=== PATIENT | female | born 1980 | race Caucasian/White ===

== ENCOUNTER 2017-03-23 05:26 | Day surgery (SDC) | payer BC ==
[2017-03-18 10:32] LABS: HEMOGLOBIN 13.5 g/dL (12.0-15.5); HGB HCT DIFFERENCE 1.5; MEAN CORPUSCULAR HEMOGLOBIN 31.5 pg (27.0-33.4); MEAN CORPUSCULAR HGB CONC 34.7 g/dL (32.0-36.0); MEAN CORPUSCULAR VOLUME 91 fl (80-97); RED BLOOD COUNT 4.29 10^6/uL (3.72-5.28); RED CELL DISTRIBUTION WIDTH 12.6 % (11.5-14.0); WHITE BLOOD COUNT 5.1 10^3/uL (4.0-10.5)
[2017-03-18 10:41] LABS: AMORPHOUS SEDIMENT,URINE TRACE /HPF; APPEARANCE,URINE CLOUDY; BILIRUBIN,URINE NEGATIVE (NEGATIVE); GLUCOSE, URINE NEGATIVE (NEGATIVE); KETONES,URINE NEGATIVE (NEGATIVE); LEUKOCYTE ESTERASE,URINE NEGATIVE (NEGATIVE); NITRITE,URINE NEGATIVE (NEGATIVE); PROTEIN,URINE NEGATIVE (NEGATIVE); URINE SPECIFIC GRAVITY 1.021
[2017-03-18 10:56] LABS: ALANINE AMINOTRANSFERASE 26 U/L (9-52); ALBUMIN 4.3 g/dL (3.5-5.0); ALKALINE PHOSPHATASE 66 U/L (38-126); ANION GAP 12 (5-19); ASPARTATE AMINO TRANSFERASE 17 U/L (14-36); BILIRUBIN,DIRECT 0.3 mg/dL (0.0-0.4); BILIRUBIN,TOTAL 0.6 mg/dL (0.2-1.3); BLOOD UREA NITROGEN 13 mg/dL (7-20); CALCIUM 9.2 mg/dL (8.4-10.2); CARBON DIOXIDE 26 mmol/L (22-30); CHLORIDE 106 mmol/L (98-107); CREATININE RESULT 0.78 mg/dL (0.52-1.25); GLUCOSE 75 mg/dL (75-110); POTASSIUM 4.2 mmol/L (3.6-5.0); SODIUM 144.1 mmol/L (137-145); TOTAL PROTEIN 6.8 g/dL (6.3-8.2)
[~2017-03-23 05:26] MED LIST: RINGERS SOLUTION,LACTATED 1,000 ML IV PRN
[2017-03-23] MEDS ORDERED: MIDAZOLAM 2 MG/2 ML INJ ONE (06:39)
[2017-03-23] MEDS ORDERED: FENTANYL CITRATE INJ/PF 100 MCG/2 ML AMPUL ONE (06:39)
[2017-03-23] MEDS ORDERED: ACETAMINOPHEN 100 ML IV ONE ×2 (06:40→16:00)
[2017-03-23] MEDS ORDERED: PROPOFOL INJ 200 MG/20 ML VIAL IV ONE (06:40)
[2017-03-23] MEDS ORDERED: HYDROMORPHONE HCL INJ/PF 2 MG/ML AMPULE ONE (06:40)
[2017-03-23] MEDS ORDERED: CEFAZOLIN 1 GM/D5W RTU 1 GM/50 ML RTUPB IV ONE (07:15)
[2017-03-23] MEDS ORDERED: MEPERIDINE HCL/PF INJ 25 MG/1 ML DISP.SYRIN IV PRN (09:02)
[2017-03-23] MEDS ORDERED: ONDANSETRON HCL INJ/PF 4 MG/2 ML SDV IV PRN (09:02)
[2017-03-23] MEDS ORDERED: FENTANYL CITRATE INJ/PF 100 MCG/2 ML AMPUL IV PRN ×3 (09:02)
[2017-03-23] MEDS ORDERED: DIPHENHYDRAMINE HCL 50 MG/ML VIAL IV PRN (09:02)
[2017-03-23] MEDS ORDERED: PROMETHAZINE HCL INJ 25 MG/1 ML VIAL IV PRN (09:02)
[2017-03-23] MEDS ORDERED: ONDANSETRON HCL INJ/PF 4 MG/2 ML SDV ONE ×2 (09:33→12:49)
[2017-03-23] MEDS ORDERED: PROMETHAZINE HCL INJ 25 MG/1 ML VIAL ONE (09:47)
[2017-03-23] MEDS ORDERED: KETOROLAC TROMETHAMINE INJ/PF 30 MG/1 ML SDV ONE (10:35)
[2017-03-23] MEDS ORDERED: OXYCODONE-ACETAMINOPHEN 5-325 MG TABLET PO PRN (10:41)
[2017-03-23] MEDS: RINGERS SOLUTION,LACTATED 1,000 ML IV PRN ×2 (11:00→20:04)
--- NOTE | 2017-03-23 11:28 | OPERATIVE REPORT E ---
Operative Report NAME: ZOFIA ESQUIVEL : 1980 AGE: 36Y DATE OF SURGERY: 03/23/2017 ROOM: PREOPERATIVE DIAGNOSES: 1. Abnormal uterine bleeding. 2. Chronic pelvic pain. 3. History of endometriosis. POSTOPERATIVE DIAGNOSES: 1. Abnormal uterine bleeding. 2. Chronic pelvic pain. 3. Pelvic adhesive disease. SURGEON: LORETTA JI M.D. ANESTHESIA: Dr. Villalobos with general. FINDINGS: Dense adhesions of the bladder, primarily on the left. Normal uterus, tubes, and ovaries. COMPLICATIONS: None. ESTIMATED BLOOD LOSS: 100 mL. SPECIMENS REMOVED: Left fallopian tube and ovary with the uterus, cervix, and the right fallopian tube. PROCEDURE: Robotic-assisted total laparoscopic hysterectomy with LSO and lysis of adhesions. PROCEDURE IN DETAIL: Patient was taken to the operating and prepared and draped in normal sterile fashion in the dorsal lithotomy position. Reese catheter was then placed to gravity and the speculum was placed into the patient's vagina. The cervix was grasped on the anterior lip with a single-toothed tenaculum. The uterus was then sounded to approximately 8 cm. The cervix was then dilated to accommodate a medium Vcare uterine manipulator, which was placed without difficulty. Gloves were changed and attention was then turned to the upper portion of the case. Subumbilical skin incision was made with a scalpel and carried through to the underlying layer of fascia with hemostats. The fascia was grasped and was transected using Sabillon scissors and extended with the Mayos until approximately 2 cm was opened through which a GelPort was placed and the camera trocar and the AirSeal trocar were placed through the GelPoint. Abdomen was then insufflated with approximately 2 L of CO2 gas through the AirSeal. The camera was introduced with the above findings noted. The patient was placed in steep Trendelenburg. Two incisions were made on either side of the umbilicus approximately 10 cm away through which two 5 mm ports were then placed under direct visualization without difficulty. The robot was docked and I then descrubbed and sat at the console. Using the vessel sealer and monopolar scissors, I began on the left adnexa and transected some adhesions that were tying up the left ovary. The IP ligament was then transected using the vessel sealer and with slow traction on the ovary. This incision was then carried through to the round ligament and the round ligament was excised. Some adhesions of the pelvic wall were encountered at this point. These were taken down using the monopolar scissors and the rest of the uterine artery was then transected using the vessel sealer down to the level of the intracervical os. A bladder flap was attempted to be created on this side; however, it was difficult. Secondary to the adhesions of the visualization, it was decided to proceed with the right adnexa. Right adnexa was inspected and the right fallopian tube was then removed using the monopolar scissors and the specimen was removed through the accessory port. I then continued with transection of the utero-ovarian ligament with the vessel sealer and continuing with transection of the uterine arteries and to the level of the internal cervical os. Visualization was better on this side and this is where the bladder flap was started using the monopolar scissors and some blunt dissection. I then continued this over to the left and again went to the left adnexa and continued transection of the uterine artery until the bladder flap could be completed and then the cup could be located through the mucosa. Once the cup was easily visible and the bladder was complete retracted well away from the lower uterine segment, I then began the colporrhaphy beginning on the anterior aspect as this is what presented itself the best and this was done with the monopolar scissors and carried circumferentially around the cervix until the specimen was completely freed. The specimen was then removed through the vagina and the instruments were replaced to begin closure of the vaginal cuff, which was done with the V-Loc needle using the MegaNeedle telephone directory distributor driver and the Prograf. This was closed without difficulty. The ureters were inspected once more and found to be peristalsing normally with no signs of hydroureter. All instruments were then removed under direct visualization. The robot was undocked, and once I rescrubbed, the fascia was closed at the umbilical skin incision using 0 Vicryl and skin was closed with 4-0 Vicryl at all 3 sites. The patient tolerated procedure well. Sponge, lap, and needle counts were correct x2. Patient was taken to recovery in stable condition. DICTATING PHYSICIAN: LORETTA JI M.D. [id number] PHY#: [id number] ID: [id number] JOB#: [id number] ACCT: [id number] cc:LORETTA JI M.D. >
[2017-03-23] MEDS ORDERED: RINGERS SOLUTION,LACTATED 1,000 ML IV ONE (12:30)
[2017-03-23] MEDS ORDERED: GLYCOPYRROLATE INJ 0.4 MG/2 ML VIAL ONE (12:49)
[2017-03-23] MEDS ORDERED: LIDOCAINE 2% INJ-PF (20 MG/ML) 2 ML AMPUL ONE (12:49)
[2017-03-23] MEDS ORDERED: SUCCINYLCHOLINE CHLORIDE INJ 200 MG/10 ML VIAL ONE (12:49)
[2017-03-23] MEDS ORDERED: NEOSTIGMINE METHYLSULFATE 10 MG/10 ML VIAL ONE (12:49)
[2017-03-23] MEDS ORDERED: VECURONIUM BROMIDE INJ 10 MG VIAL IV ONE (12:49)
[2017-03-23] MEDS ORDERED: DEXAMETHASONE SOD PHOSPHATE INJ 4 MG/1 ML VIAL ONE (12:49)
[2017-03-23] MEDS ORDERED: ACETAMINOPHEN WITH CODEINE #3 TABLET ONE (13:10)
[2017-03-23] MEDS: KETOROLAC TROMETHAMINE INJ/PF 30 MG/1 ML SDV IV SCH (17:30)
[2017-03-23] MEDS: ACETAMINOPHEN WITH CODEINE #3 TABLET PO PRN (19:53)
[2017-03-24] MEDS: KETOROLAC TROMETHAMINE INJ/PF 30 MG/1 ML SDV IV SCH (01:17)
[2017-03-24 05:30] LABS: HEMATOCRIT 33.7 % (36.0-47.0); HEMOGLOBIN 11.8 g/dL (12.0-15.5); HGB HCT DIFFERENCE 1.7; MEAN CORPUSCULAR VOLUME 92 fl (80-97); RED BLOOD COUNT 3.68 10^6/uL (3.72-5.28); RED CELL DISTRIBUTION WIDTH 12.7 % (11.5-14.0); WHITE BLOOD COUNT 11.1 10^3/uL (4.0-10.5)
[2017-03-24] MEDS: ACETAMINOPHEN WITH CODEINE #3 TABLET PO PRN ×2 (06:09→09:37)
[2017-03-24 08:30] VITALS: BP 119/71
[2017-03-24] MEDS ORDERED: IBUPROFEN 800 MG TABLET PO PRN (10:00)
[2017-03-24] MEDS ORDERED: SIMETHICONE 80 MG TAB.CHEW PO ONE (10:30)
--- NOTE | 2017-03-24 11:23 | PDOC DISCHARGE SUMMARY ---
General - Admit/Disc Date/PCP Discharge Date: 03/24/17 - Discharge Diagnosis (1) Abnormal uterine and vaginal bleeding, unspecified Is this a current diagnosis for this admission?: Yes (2) Chronic pelvic pain in female Is this a current diagnosis for this admission?: Yes (3) Pelvic adhesive disease Is this a current diagnosis for this admission?: Yes - Additional Information Discharge Diet: Regular Discharge Activity: Balance Activity w/Rest, No Driving, No Lifting Over 10 Pounds, No Lifting/Push/Pulling, Pelvic Rest, No tub bath Home Medications: No Home Medications 03/18/17 History of Present Illness History of Present Illness: ZOFIA ESQUIVEL is a 36 year old female Hospital Course Hospital Course: underwent a RATLH w/ LSO and right salpingectomy without difficulty. has had an unremarkable postoperative course. ready for discharge home. voiding normally Physical Exam - Physical Exam Vital Signs: Temp Pulse Resp BP Pulse Ox 98.6 F 78 16 119/71 100 03/24/17 08:27 03/24/17 08:27 03/24/17 08:27 03/24/17 08:27 03/24/17 08:27 Intake & Output 03/23/17 03/24/17 03/25/17 06:59 06:59 06:59 Intake Total 0 2570 Output Total 4850 Balance 0 -2280 Weight 68.49 kg General appearance: PRESENT: no acute distress, cooperative GI/Abdominal exam: PRESENT: soft, tenderness - appropropriate for post operative course. incisions clean/dry and intact. Result Laboratory Results: 03/24/17 05:10 03/18/17 09:11 03/24/17 05:10 WBC 11.1 H RBC 3.68 L Hgb 11.8 L Hct 33.7 L MCV 92 MCH 32.0 MCHC 35.0 RDW 12.7 Plt Count 194 Plan Discharge Plan: discharge home with scheduled follow up Time Spent: Less than 30 Minutes
== END 2017-03-24 12:25 | disposition home or self-care (01) ==
LOC: OROUT 05:26 → 2N 11:04 → OROUT 03-24 12:25
PROVIDERS: ATTEND Obstetrics & Gynecology
PROC: 0UT14ZZ Resection of Left Ovary, Percutaneous Endoscopic Approach (ICD-10-PCS; 2017-03-23)
PROC: 0UT74ZZ Resection of Bilateral Fallopian Tubes, Percutaneous Endoscopic Approach (ICD-10-PCS; 2017-03-23)
PROC: 8E0W4CZ Robotic Assisted Procedure of Trunk Region, Percutaneous Endoscopic Approach (ICD-10-PCS; 2017-03-23)
PROC: 0UT94ZZ Resection of Uterus, Percutaneous Endoscopic Approach (ICD-10-PCS; principal; 2017-03-23 07:30)
DX: G89.29 Other chronic pain (principal); R10.2 Pelvic and perineal pain; N73.6 Female pelvic peritoneal adhesions (postinfective); N93.9 Abnormal uterine and vaginal bleeding, unspecified; N80.0 Endometriosis of uterus; N83.8 Other noninflammatory disorders of ovary, fallopian tube and broad ligament; N83.12 Corpus luteum cyst of left ovary; R01.1 Cardiac murmur, unspecified; Z87.891 Personal history of nicotine dependence; Z88.5 Allergy status to narcotic agent
CPT/HCPCS: 58571; S2900; 36415; 80053; 81001; 81025; 840; 85027; 86850; 86900; 86901; 88307; J0131; J0330; J0690; J1100; J1170; J1885; J2250; J2405; J2550; J2704; J3010; J3490; J7120

== ENCOUNTER 2017-03-25 11:14 | Emergency (ER) | payer BC ==
[2017-03-25] MEDS ORDERED: HYDROMORPHONE HCL INJ/PF 2 MG/ML AMPULE IV ONE (11:38)
--- NOTE | 2017-03-25 11:39 | ER Document Report ---
ED Medical Screen (RME) - General Chief Complaint: Abdominal Pain Stated Complaint: FLANK PAIN Time Seen by Provider: 03/25/17 11:27 Mode of Arrival: Ambulatory Information source: Patient Notes: 36-year-old female presents with abdominal pain rib pain post hysterectomy. Patient denies any fevers or chills denies any nausea vomiting. Patient notes she has not passed gas or had a bowel movement since the surgical procedure 2 days ago I have greeted and performed a rapid initial assessment of this patient. A comprehensive ED assessment and evaluation of the patient, analysis of test results and completion of the medical decision making process will be conducted by additional ED providers. PHYSICAL EXAMINATION: GENERAL: Well-appearing, well-nourished and in moderate distress HEAD: Atraumatic, normocephalic. EYES: Pupils equal round extraocular movements intact, conjunctiva are normal. ENT: Nares patent NECK: Normal range of motion LUNGS: No respiratory distress Musculoskeletal: Normal range of motion NEUROLOGICAL: Normal speech, normal gait. PSYCH: Normal mood, normal affect. SKIN: Warm, Dry, normal turgor, no rashes or lesions noted. TRAVEL OUTSIDE OF THE [place] IN LAST 30 DAYS: No - Related Data Allergies/Adverse Reactions: morphine [Morphine] Allergy (Severe, Verified 03/18/17 09:56) rash Past Medical History - Social History Chew tobacco use (# tins/day): No Frequency of alcohol use: None Drug Abuse: None - Past Medical History Cardiac Medical History: Denies: Hx Coronary Artery Disease, Hx Heart Attack, Hx Hypertension Pulmonary Medical History: Denies: Hx Asthma, Hx Bronchitis, Hx COPD, Hx Pneumonia Neurological Medical History: Denies: Hx Cerebrovascular Accident, Hx Seizures Renal/ Medical History: Denies: Hx Peritoneal Dialysis Musculoskeltal Medical History: Denies Hx Arthritis Past Surgical History: Reports: Hx Breast Surgery, Hx Section, Hx Hysterectomy, Hx Orthopedic Surgery, Hx Tubal Ligation - Immunizations Hx Diphtheria, Pertussis, Tetanus Vaccination: Yes History of Influenza Vaccine for 02/2017 - 07/2017 Season: Refused Physical Exam - Vital signs Vitals: Temp Pulse Resp BP Pulse Ox 98.6 F 85 16 126/66 H 99 03/25/17 11:16 03/25/17 11:16 03/25/17 11:16 03/25/17 11:16 03/25/17 11:16 Course - Vital Signs Vital signs: Temp Pulse Resp BP Pulse Ox 98.6 F 85 16 126/66 H 99 03/25/17 11:16 03/25/17 11:16 03/25/17 11:16 03/25/17 11:16 03/25/17 11:16
[2017-03-25 12:02] LABS: ABSOLUTE BASOPHILS # (AUTO) 0.1 10^3/uL (0.0-0.2); ABSOLUTE EOSINOPHILS # (AUTO) 0.1 10^3/uL (0.0-0.6); ABSOLUTE MONOCYTES (AUTO) 0.5 10^3/uL (0.1-1.4); ABSOLUTE NEUT (AUTO) 3.9 10^3/uL (1.7-8.2); BASOPHILS % (AUTO) 0.8 % (0-2); EOSINOPHILS % (AUTO) 1.1 % (0-6); HEMATOCRIT 36.2 % (36.0-47.0); HEMOGLOBIN 12.7 g/dL (12.0-15.5); HGB HCT DIFFERENCE 1.9; LYMPHOCYTES % (AUTO) 31.1 % (13-45); MEAN CORPUSCULAR HEMOGLOBIN 31.6 pg (27.0-33.4); MEAN CORPUSCULAR VOLUME 90 fl (80-97); MONOCYTES % (AUTO) 7.4 % (3-13); RED BLOOD COUNT 4.01 10^6/uL (3.72-5.28); RED CELL DISTRIBUTION WIDTH 12.7 % (11.5-14.0); SEGMENTED NEUTROPHILS % (AUTO) 59.6 % (42-78); WHITE BLOOD COUNT 6.6 10^3/uL (4.0-10.5)
[2017-03-25] MEDS ORDERED: ONDANSETRON HCL INJ/PF 4 MG/2 ML SDV IV ONE (12:11)
--- NOTE | 2017-03-25 12:14 | ER Document Report ---
ED GI/ - General Chief Complaint: Abdominal Pain Stated Complaint: FLANK PAIN Time Seen by Provider: 03/25/17 11:27 Mode of Arrival: Ambulatory Information source: Patient Notes: Patient is a 36-year-old female who presents to the ER today 2 days post robotic hysterectomy for right upper quadrant pain. Patient states that this was going on before she was discharged and that they told her it was "just gas and that she needed to pass gas." Patient denies any fevers, chills, difficulty breathing, pain with breathing. She denies any pain around the incision sites, drainage from the sites. She admits to nausea but no vomiting. TRAVEL OUTSIDE OF THE [place] IN LAST 30 DAYS: No - Related Data Allergies/Adverse Reactions: morphine [Morphine] Allergy (Severe, Verified 03/18/17 09:56) rash Past Medical History - General Information source: Patient - Social History Smoking Status: Never Smoker Chew tobacco use (# tins/day): No Frequency of alcohol use: None Drug Abuse: None Family History: None Patient has suicidal ideation: No Patient has homicidal ideation: No - Past Medical History Cardiac Medical History: Denies: Hx Coronary Artery Disease, Hx Heart Attack, Hx Hypertension Pulmonary Medical History: Denies: Hx Asthma, Hx Bronchitis, Hx COPD, Hx Pneumonia Neurological Medical History: Denies: Hx Cerebrovascular Accident, Hx Seizures Renal/ Medical History: Denies: Hx Peritoneal Dialysis Musculoskeltal Medical History: Denies Hx Arthritis Past Surgical History: Reports: Hx Breast Surgery, Hx Section, Hx Hysterectomy, Hx Orthopedic Surgery, Hx Tubal Ligation - Immunizations Hx Diphtheria, Pertussis, Tetanus Vaccination: Yes Review of Systems - Review of Systems Constitutional: No symptoms reported EENT: No symptoms reported Cardiovascular: No symptoms reported Respiratory: No symptoms reported Gastrointestinal: See HPI Genitourinary: No symptoms reported Female Genitourinary: No symptoms reported Musculoskeletal: No symptoms reported Skin: No symptoms reported Hematologic/Lymphatic: No symptoms reported Neurological/Psychological: No symptoms reported Physical Exam - Vital signs Vitals: Temp Pulse Resp BP Pulse Ox 98.6 F 85 16 126/66 H 99 03/25/17 11:16 03/25/17 11:16 03/25/17 11:16 03/25/17 11:16 03/25/17 11:16 - Notes Notes: PHYSICAL EXAMINATION: GENERAL: Uncomfortable appearing, but no acute distress. HEAD: Atraumatic, normocephalic. EYES: Pupils equal round and reactive to light, extraocular movements intact, sclera anicteric, conjunctiva are normal. NECK: Normal range of motion, supple without lymphadenopathy LUNGS: CTAB and equal. No wheezes rales or rhonchi. HEART: Regular rate and rhythm without murmurs ABDOMEN: Soft, RUQ tenderness. incision sites well healing to llq, periumbilical and right mid abdomen, no erythema or drainage from incisions, No guarding, no rebound BACK: no vertebral tenderness, normal ROM GI/: no CVA tenderness EXTREMITIES: Normal range of motion, no pitting edema. No cyanosis. NEUROLOGICAL: Cranial nerves grossly intact. Normal sensory/motor exams. PSYCH: Normal mood, normal affect. SKIN: Warm, Dry, normal turgor, no rashes or lesions noted Course - Vital Signs Vital signs: Temp Pulse Resp BP Pulse Ox 98.6 F 85 16 126/66 H 99 03/25/17 11:16 03/25/17 11:16 03/25/17 11:16 03/25/17 11:16 03/25/17 11:16 - Laboratory Result Diagrams: 03/25/17 11:46 03/25/17 11:46 Discharge - Discharge Clinical Impression: Abdominal pain Qualifiers: Abdominal location: right upper quadrant Qualified Code(s): R10.11 - Right upper quadrant pain Condition: Stable Disposition: HOME, SELF-CARE Additional Instructions: Return immediately for any new or worsening symptoms. Follow up with primary care provider, call tomorrow to make followup appointment. Prescriptions: Dicyclomine HCl [Bentyl 20 mg Tablet] 20 mg PO QID #40 tablet Sennosides [Senna Laxative] 8.6 mg PO DAILY PRN #15 tablet PRN Reason: Forms: Return to Work
[2017-03-25 12:26] LABS: ALANINE AMINOTRANSFERASE 22 U/L (9-52); ALBUMIN 4.2 g/dL (3.5-5.0); ALKALINE PHOSPHATASE 66 U/L (38-126); ANION GAP 13 (5-19); ASPARTATE AMINO TRANSFERASE 14 U/L (14-36); BILIRUBIN,DIRECT 0.3 mg/dL (0.0-0.4); BILIRUBIN,TOTAL 0.5 mg/dL (0.2-1.3); BLOOD UREA NITROGEN 8 mg/dL (7-20); CALCIUM 9.5 mg/dL (8.4-10.2); CARBON DIOXIDE 24 mmol/L (22-30); CHLORIDE 107 mmol/L (98-107); CREATININE RESULT 0.69 mg/dL (0.52-1.25); GLUCOSE 82 mg/dL (75-110); LIPASE 74.2 U/L (23-300); POTASSIUM 4.1 mmol/L (3.6-5.0); SODIUM 143.8 mmol/L (137-145); TOTAL PROTEIN 6.7 g/dL (6.3-8.2)
--- NOTE | 2017-03-25 12:56 | RADIOLOGY REPORT (SQ) ---
EXAM DESCRIPTION: CTA CHEST; CT ABD/PELVIS WITH IV ONLY COMPLETED DATE/TIME: 03/25/2017 12:33 pm REASON FOR STUDY: pain post surgical post hysterectomy 2 days ago, increasing pelvic pain, chest trev n, COMPARISON: None. CONTRAST TYPE AND DOSE: contrast/concentration: Isovue 370.00 mg/ml; Total Contrast Delivered: 65.0 ml; Total Saline Delivered: 100.0 ml RENAL FUNCTION: Creatinine 0.8 TECHNIQUE: CT scan of the chest performed using helical scanning technique with dynamic intravenous contrast injection for visualization of the pulmonary arteries. Images reviewed with lung, soft tiss ue and bone windows. Reconstructed coronal and sagittal MPR images reviewed. Additional maximum inte nsity projected images of the pulmonary arteries were generated and saved to pac's. All images store d on PACS. CT scan of the abdomen and pelvis performed with intravenous and without oral contrastusing helical s john technique with dynamic intravenous contrast injection. Images reviewed with lung, soft tissu e and bone windows. Reconstructed coronal and sagittal MPR images reviewed. Delayed images for eval uation of the urinary system also acquired and evaluated. All images stored on PACS. All CT scanners at this facility use dose modulation, iterative reconstruction, and/or weight based d osing when appropriate to reduce radiation dose to as low as reasonably achievable (ALARA). [facility]: Dose Right [facility]: CareDose [facility]: Dose Right [facility]: Teradose 4D [facility]: Smart [employer] RADIATION DOSE: CT Rad equipment meets quality standard of care and radiation dose reduction techniq ues were employed. CTDIvol: 3.3 - 15.5 mGy. DLP: 2008 mGy-cm. . LIMITATIONS: None. FINDINGS: CHEST: Contrast bolus optimized for the pulmonary arteries. Contrast is also present in the thoracic aorta. LUNGS AND PLEURA: No opacities, nodules, masses. No pneumothorax. No effusions. HILAR AND MEDIASTINAL STRUCTURES: No identified masses or abnormal nodes. HEART AND VASCULAR STRUCTURES: No aneurysm or dissection. No pulmonary emboli. No pericardial effus ion. HARDWARE: None. THYROID AND OTHER SOFT TISSUES: No masses. No adenopathy. Bilateral breast implants are present BONES: No significant finding. OTHER: No other significant finding. ABDOMEN AND PELVIS: There is a small amount of operative air along the tissue planes between the left abdominal wall musc ulature, umbilical soft tissues, deep pelvic retroperitoneum in the space of breath CS and along the left obturator internus muscle. Trace amount of intraperitoneal free air between the liver and right hemidiaphragm, and along the right pericolic gutter. These areas are within expected range for 48 h ours postop. Patient is post hysterectomy. There is a pelvic cul-de-sac hematoma with a fluid-fluid level from la yering of red and white cells. This measures 6 cm craniocaudad by 5.7 cm transverse by 3.3 cm AP. Higher up in the right pelvis along the right iliac vessels, a mixed density soft tissue and fluid st ructure is present measuring about 5 cm AP x 2 cm transverse which could represent extension of the h ematoma up towards the right iliac vessels, or could be the right ovary with ovarian cysts. These findings were discussed with the emergency room attending physician, Dr. Estrada. LIVER: Normal size. No masses. No dilated ducts. SPLEEN: Normal size. No focal lesions. PANCREAS: No masses. No significant calcifications. No adjacent inflammation or peripancreatic fluid collections. Pancreatic duct not dilated. GALLBLADDER: No identified stones by CT criteria. No inflammatory changes to suggest cholecystitis. ADRENAL GLANDS: No significant masses or asymmetry. RIGHT KIDNEY AND URETER: No solid masses. No significant calcification. No hydronephrosis or hydroure ter. LEFT KIDNEY AND URETER: No solid masses. No significant calcification. No hydronephrosis or hydrouret er. AORTA AND VESSELS: No aneurysm. No dissection. Renal arteries, SMA, celiac without stenosis. RETROPERITONEUM: No adenopathy BOWEL AND PERITONEAL CAVITY: No masses or inflammatory changes. No free fluid or peritoneal masses. Small amount of free intraperitoneal air as above. No CT evidence of bowel obstruction. Moderate st ool in the ascending and transverse colon. APPENDIX: Normal. ABDOMINAL WALL: No masses. No hernias. Abdominal wall air is present, as above BONES: No significant or acute findings. PELVIS: As above IMPRESSION: No CT angio evidence of acute pulmonary emboli. No focal pulmonary infiltrates. Postsurgical changes with small amount of abdominal wall and free intraperitoneal air. Post hysterec stan with pelvic hematoma. Small right pelvic hematoma near the iliac vessels versus right ovary. Findings discussed with the emergency room attending physician TECHNICAL DOCUMENTATION: JOB ID: [id number] Quality ID # [id number]: Final reports with documentation of one or more dose reduction techniques (e.g., Au tomated exposure control, adjustment of the mA and/or kV according to patient size, use of iterative reconstruction technique) 2010 [employer]- All Rights Reserved
[2017-03-25] MEDS ORDERED: DICYCLOMINE HCL 20 MG TABLET PO ONE (13:44)
[2017-03-25] MEDS ORDERED: MAGNESIUM HYDROXIDE SUSP 30 ML UDCUP PO ONE (13:44)
[2017-03-25 14:55] VITALS: BP 109/74
== END 2017-03-25 15:20 | disposition home or self-care (01) ==
LOC: ER 11:14
DX: R10.11 Right upper quadrant pain (principal); Z88.6 Allergy status to analgesic agent; Z90.710 Acquired absence of both cervix and uterus
CPT/HCPCS: 99284; 96374; 96375; 36415; 83690; 85025; 80053; 71275; 74177; J3490 ×2; J1170; J2405